=== PATIENT | male | born 1990 | race Hispanic/Latino ===

== ENCOUNTER 2020-04-14 13:08 | Emergency (ER) | payer OTHER ==
[~2020-04-14] VITALS: Ht 180.3 cm; Wt 83.2 kg
--- NOTE | 2020-04-14 13:46 | REP ---
INDICATION: fall injury COMPARISON: None. TECHNIQUE: Frontal view of the chest with multiple views of the left hemithorax. FINDINGS: Frontal view of the chest demonstrates no acute cardiopulmonary process, contusion, effusion, or pneumothorax. Multiple views of the left hemithorax demonstrates no acute rib fracture/injury or pathology. IMPRESSION: Normal rib series. <Electronically signed by Rey Hanson > 04/14/20 [id number]
[2020-04-14 16:26] VITALS: BP 112/67
[2020-04-14] MEDS ORDERED: KETOROLAC TROMETHAMINE 10 MG TAB PO ONE (16:30)
== END 2020-04-14 16:27 | disposition home or self-care (01) ==
LOC: M ED 13:08
DX: S20.212A Contusion of left front wall of thorax, initial encounter (principal); W00.9XXA Unspecified fall due to ice and snow, initial encounter; Y92.9 Unspecified place or not applicable; Y93.9 Activity, unspecified; Y99.9 Unspecified external cause status

== ENCOUNTER 2020-06-03 07:55 | Emergency (ER) | payer OTHER ==
[~2020-06-03] VITALS: Ht 177.8 cm; Wt 84.1 kg
[2020-06-03] MEDS ORDERED: ACETAMINOPHEN 500 MG TAB PO ONE (08:25)
--- NOTE | 2020-06-03 08:56 | REP ---
INDICATION: trauma left thumb COMPARISON: None. TECHNIQUE: AP, lateral, bilateral oblique views left 1st digit. FINDINGS: The osseous structures and joint spaces are intact and normal. There is no evidence for acute fracture or dislocation. Surrounding soft tissues are unremarkable. No subcutaneous emphysema or radiodense foreign body. IMPRESSION: . No acute fracture or dislocation. <Electronically signed by Rey Hanson > 06/03/20 [id number]
--- NOTE | 2020-06-03 08:58 | REP ---
INDICATION: trauma. COMPARISON: None. TECHNIQUE: Helical scanning is acquired. 5 mm axial images were reformatted. Coronal MPR images were generated. FINDINGS: Bone window settings demonstrate an intact bony calvarium. There is no evidence of skull fracture or incidental bony calvarial lesion. The visualized paranasal sinuses appear clear. No intraorbital abnormality is seen. On soft tissue window setting images; the lateral, third, and fourth ventricles are normal in size and position. Hampton-white differentiation pattern is normal above and below the tentorium. There are is no evidence of intracranial hemorrhage. No mass, edema, infarction, or midline shift is seen. No extra-axial fluid collection is appreciated. IMPRESSION: Negative noncontrast head CT. <Electronically signed by Bryson Vega > 06/03/20 [id number]
--- NOTE | 2020-06-03 09:02 | REP ---
INDICATION: trauma. COMPARISON: None. TECHNIQUE: Helical scanning is acquired and overlapping 2 mm high resolution axial images were generated and reviewed at bone and soft tissue window settings. Coronal and sagittal multiplanar re-formations images are generated. FINDINGS: There is no evidence of cervical spine element fracture. No skull base fracture is seen. Cervical vertebral body heights are preserved. Alignment is normal. Facet joints are normally aligned bilaterally at each cervical level on multiplanar re-formations images. There is no evidence of intraspinal or paraspinal hematoma. No extra vertebral abnormality is seen. 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 This is felt to be normal anatomic variant. IMPRESSION: Negative CT study of the cervical spine without contrast. No fracture seen. <Electronically signed by Bryson Vega > 06/03/20 [id number]
[2020-06-03] MEDS ORDERED: BACI500O21 TOP (09:48)
[2020-06-03 09:58] VITALS: BP 112/80
== END 2020-06-03 10:01 | disposition home or self-care (01) ==
LOC: M ED 07:55
DX: S16.1XXA Strain of muscle, fascia and tendon at neck level, initial encounter (principal); S61.012A Laceration without foreign body of left thumb without damage to nail, initial encounter; W20.8XXA Other cause of strike by thrown, projected or falling object, initial encounter; Y92.138 Other place on military base as the place of occurrence of the external cause; Y93.B3 Activity, free weights; Y99.1 Military activity; R51.9 Headache, unspecified; H53.8 Other visual disturbances; R42 Dizziness and giddiness; F17.200 Nicotine dependence, unspecified, uncomplicated; Z88.8 Allergy status to other drugs, medicaments and biological substances

== ENCOUNTER 2020-06-04 09:59 | Emergency (ER) | payer OTHER ==
[~2020-06-04] VITALS: Ht 177.8 cm; Wt 83.8 kg
[~2020-06-04 09:59] MED LIST: BACI500O21 TOP
--- NOTE | 2020-06-04 12:37 | REP ---
INDICATION: head injury. COMPARISON: 06/03/2020 TECHNIQUE: CT BRAIN PERFORMED IN THE AXIAL PLANE. CORONAL RECONSTRUCTION IMAGES ARE PERFORMED. FINDINGS: THE VENTRICLES ARE NORMAL IN SIZE AND POSITION. THERE IS NO MIDLINE SHIFT OR MASS EFFECT. PEREZ-WHITE DIFFERENTIATION IS WELL MAINTAINED. THERE IS NO ACUTE INTRACRANIAL HEMORRHAGE OR EXTRA-AXIAL FLUID COLLECTION. BONE WINDOW EXAMINATION IS UNREMARKABLE. NO LINEAR OR DEPRESSED SKULL FRACTURE. SKULL BASE ALSO WITHOUT FRACTURE OR FOCAL LESION. VISUALIZED MASTOID AIR CELLS AND PARANASAL SINUSES ARE CLEAR. THERE IS NO INTERVAL CHANGE FROM YESTERDAY. IMPRESSION: NEGATIVE NONCONTRAST CT BRAIN. STABLE FROM YESTERDAY. <Electronically signed by Jun Celis > 06/04/20 [id number]
[2020-06-04] MEDS ORDERED: ACETAMINOPHEN 500 MG TAB PO ONE (13:00)
[2020-06-04 13:34] VITALS: BP 120/80
== END 2020-06-04 13:30 | disposition home or self-care (01) ==
LOC: M ED 09:59
DX: S06.0X0A Concussion without loss of consciousness, initial encounter (principal); S16.1XXA Strain of muscle, fascia and tendon at neck level, initial encounter; W20.8XXA Other cause of strike by thrown, projected or falling object, initial encounter; Y92.138 Other place on military base as the place of occurrence of the external cause; Y93.B3 Activity, free weights; Y99.1 Military activity; R51.9 Headache, unspecified; R11.2 Nausea with vomiting, unspecified; Z88.8 Allergy status to other drugs, medicaments and biological substances

== ENCOUNTER 2020-06-09 08:09 | Emergency (ER) | payer OTHER ==
[~2020-06-09] VITALS: Ht 177.8 cm; Wt 87.7 kg
[2020-06-09 08:10] VITALS: BP 129/82
[2020-06-09] MEDS ORDERED: ACET-683 PO (08:16)
[2020-06-09] MEDS ORDERED: DEBR6.5S4 OTIC (08:50)
== END 2020-06-09 09:05 | disposition home or self-care (01) ==
LOC: M ED 08:09
DX: H61.21 Impacted cerumen, right ear (principal); Z88.8 Allergy status to other drugs, medicaments and biological substances

== ENCOUNTER 2020-08-31 00:44 | Emergency (ER) | payer OTHER ==
[~2020-08-31 00:44] MED LIST changes: +ACET-683 PO; +DEBR6.5S4 OTIC
[2020-08-31 00:45] VITALS: BP 142/79
[2020-08-31] MEDS ORDERED: ALLE180T33 PO (00:57)
== END 2020-08-31 06:16 | disposition left against medical advice (07) ==
LOC: M ED 00:44
DX: Z53.21 Procedure and treatment not carried out due to patient leaving prior to being seen by health care provider (principal)